=== PATIENT | female | born 1990 | race Two or more races ===

== ENCOUNTER 2025-01-07 20:32 | Emergency (ER) | payer OTHER ==
[~2025-01-07] VITALS: Ht 154.9 cm; Wt 56.7 kg
[2025-01-07] MEDS ORDERED: METHYLPREDNISOLONE SOD SUCC 125 MG VIAL IM STA (21:27)
[2025-01-07] MEDS ORDERED: DIPHENHYDRAMINE HCL 50 MG/ML VIAL 1ML IM STA (21:28)
[2025-01-07] MEDS ORDERED: DIPHENHYDRAMINE HCL 50 MG/ML VIAL 1ML ONE (21:30)
[2025-01-07] MEDS ORDERED: METHYLPREDNISOLONE SOD SUCC 125 MG VIAL ONE (21:30)
== END 2025-01-07 22:03 | disposition home or self-care (01) ==
LOC: ER 20:39
DX: T78.40XA Allergy, unspecified, initial encounter (principal); Z91.013 Allergy to seafood